=== PATIENT | male | born 2000 | race Hispanic/Latino ===

== ENCOUNTER 2024-11-03 22:39 | Emergency (ER) | payer OTHER ==
[~2024-11-03] VITALS: Ht 182.9 cm; Wt 113.0 kg
[2024-11-04 00:12] VITALS: BP 138/90
== END 2024-11-04 00:14 | disposition home or self-care (01) ==
LOC: ED 22:39
DX: S61.411A Laceration without foreign body of right hand, initial encounter (principal); W25.XXXA Contact with sharp glass, initial encounter
CPT/HCPCS: 12002; 99282